=== PATIENT | female | born 1965 | race Caucasian/White ===

== ENCOUNTER 2016-06-05 11:21 | Outpatient (CLI) | payer OTHER ==
[2016-06-05 13:38] LABS: #Basophils 0.1 thou/uL (0.0-0.2); #Lymphocytes 2.2 thou/uL (1.20-3.40); #Monocytes 0.4 thou/uL (0.11-0.59); #Neutrophils 4.6 thou/uL (1.40-6.50); %Basophils 1.1 % (0.0-1.0); %Eosinophils 0.6 % (0.0-10.0); %Monocytes 5.2 % (0.0-10.0); Hematocrit 41.8 % (36.0-47.0); Mean Platelet Volume 7.1 fL (7.4-10.4); Red Blood Cell (RBC) Count 5.13 mill/uL (4.20-5.40); White Blood Cell (WBC) Count 7.3 thou/uL (4.8-10.8)
== END 2016-06-05 11:22 | disposition home or self-care (01) ==
LOC: HPCALD 11:21
PROVIDERS: ATTEND Family Medicine
DX: E55.9 Vitamin D deficiency, unspecified (principal); R55 Syncope and collapse; C73 Malignant neoplasm of thyroid gland
CPT/HCPCS: 36415; 82306; 84439; 84443; 85025

== ENCOUNTER 2016-06-06 16:38 | Outpatient (CLI) | payer OTHER | END 2016-06-06 16:39 | disposition home or self-care (01) | LOC: HPCALD 16:38 | PROVIDERS: ATTEND Family Medicine | DX: Z01.419 Encounter for gynecological examination (general) (routine) without abnormal findings (principal) ==